=== PATIENT | female | born 1965 | race Two or more races ===

== ENCOUNTER 2020-07-15 10:39 | Emergency (ER) | payer OTHER ==
[~2020-07-15] VITALS: Ht 157.5 cm; Wt 94.0 kg
[2020-07-15 10:50] VITALS: BP 158/71
--- NOTE | 2020-07-15 11:14 | ED.ADGEN ---
Past Medical History Past Medical History: Arthritis Past Surgical History: Cholecystectomy Smoking Status: Never Smoker Alcohol Use: None Drug Use: None General Adult EDM: Chief Complaint: LOWER EXTREMITY EDEMA HPI: HPI: Patient is a 55 year old female, accompanied by her daughter who translates for her, that presents to the emergency room with complaints of left knee pain and swelling without any injury. Patient states that she traveled to [place] a week ago via train, she just came back yesterday. She denies any history of blood clots, hormone use, or smoking. Patient denies any recent injury or trauma. She denies any fever, cough, body aches, chest pain, shortness of breath, palpitations, nausea, vomiting, diarrhea, abdominal pain, fatigue, or rash. Patient denies any pain at rest however she states that she moves her left knee or bears weight on her left leg the pain is 10 out of 10 on the pain scale. She denies any medical history other than arthritis, her only surgery is a cholecystectomy, she denies any tobacco, drug, or alcohol use. Review of Systems: Review of Systems: Complete ROS is negative unless otherwise noted in HPI. Current Medications: Current Medications Medications (Trade) Dose Ordered Sig/Kvng Start Time Stop Time Status Last Admin Dose Admin Prednisone (Prednisone) 50 mg 1X ONCE 07/15/20 13:15 07/15/20 13:30 DC 07/15/20 14:45 50 MG Allergies: Allergies: Allergies Coded Allergies Type Severity Reaction Last Updated Verified No Known Drug Allergies 07/15/20 No Physical Exam: PE: See Above Constitutional: Well developed, well nourished, no acute distress, non-toxic appearance, obese. [] HENT: Normocephalic, atraumatic, bilateral external ears normal, nose normal. [] Eyes: PERRLA, EOMI, conjunctiva normal, no discharge. [] Neck: Normal range of motion, no stridor. [] Cardiovascular:Heart rate regular rhythm Lungs & Thorax: Respirations even and unlabored, no retractions, no respiratory distress Abdomen: soft, no tenderness Skin: Warm, dry, no erythema, no rash. [] Extremities: Left knee: 2+ edema and warmth to the lateral proximal knee, diffuse anterior tenderness to palpation, no obvious deformity, no crepitus, no cyanosis, ROM limited due to pain, no erythema, no bruising Neurologic: Alert and oriented X 3, normal sensory, no focal deficits noted. [] Psychologic: Affect normal, judgement normal, mood normal. [] Current Patient Data: Vital Signs: Vital Signs Date Time Temp Pulse Resp B/P (MAP) Pulse Ox O2 Delivery O2 Flow Rate FiO2 07/15/20 10:50 98.9 68 20 158/71 (100) 95 Room Air 98.9 EKG: EKG: [] Heart Score: C/O Chest Pain: No Risk Scores: Score 0 - 3: 2.5% MACE over next 6 weeks - Discharge Home Score 4 - 6: 20.3% MACE over next 6 weeks - Admit for Clinical Observation Score 7 - 10: 72.7% MACE over next 6 weeks - Early Invasive Strategies Radiology/Procedures: Radiology/Procedures: PROCEDURE: KNEE LEFT 3V XR KNEE _3 VIEWS_LT History: Reason: left knee pain and swelling no injury / Spl. Instructions: / History: Technique: 3 views left knee. Comparison: None. Findings: Normal alignment. No fracture. Moderate left knee DJD most prominent within the medial and patellofemoral compartments. Large knee joint effusion. Extensive varicose veins within the soft tissues. Impression: 1. No acute osseous abnormality. 2. Large knee joint effusion. 3. Extensive varicose veins.[] PROCEDURE: VENOUS LOWER EXTREMITY LEFT Left lower extremity venous duplex Doppler ultrasound HISTORY: Left leg swelling and pain recent traveling. FINDINGS: No DVT evident by grayscale sonography with compressibility, patent color Doppler blood flow and augmentation of blood flow the left common femoral vein, femoral vein, superficial femoral vein and popliteal vein. Left popliteal fossa Mendez's cyst measuring 6.5 x 1.1 x 4.0 cm. No DVT evident with patent color Doppler blood flow the posterior tibial and peroneal veins in the calf. IMPRESSION: Negative left leg for DVT. Mendez's cyst in the popliteal fossa. Electronically signed by: Justin Hurt MD (07/15/2020 12:26 PM) [id number] Course & Med Decision Making: Course & Med Decision Making Pertinent Labs and Imaging studies reviewed. (See chart for details) [] Dragon Disclaimer: Dragon Disclaimer: This electronic medical record was generated, in whole or in part, using a voice recognition dictation system. Departure Departure Impression: Primary Impression: Acute pain of left knee Additional Impression: Effusion of knee joint, left Disposition: HOME / SELF CARE / HOMELESS Condition: STABLE Referrals: YURI JACOBO MD Patient Instructions: Knee Effusion, [id number] Additional Instructions: Fill prescription(s) and use as directed, start taking medication tomorrow as the first dose was given in the ER.. Recommend application of ice, elevation, and rest of affected extremity. Follow-up with Dr. Jacobo this week, call in the morning to make an appointment, return to the ER if your symptoms worsen or fever develops.. Scripts Prednisone (PREDNISONE) 50 Mg Tablet 1 TAB PO DAILY for 5 Days, #5 TAB 0 Refills Prov: SATISH CASTRO APRN 07/15/20 Attending Signature Attending Signature I have participated in the care of this patient and I have reviewed and agree with all pertinent clinical information above including history, exam, and recommendations. Problem Qualifiers SATISH CASTRO APRN Jul 15, 2020 11:13 JOSHUA SHIPMAN DO Jul 15, 2020 18:30
--- NOTE | 2020-07-15 11:39 | RAD ---
XR KNEE _3 VIEWS_LT History: Reason: left knee pain and swelling no injury / Spl. Instructions: / History: Technique: 3 views left knee. Comparison: None. Findings: Normal alignment. No fracture. Moderate left knee DJD most prominent within the medial and patellofem oral compartments. Large knee joint effusion. Extensive varicose veins within the soft tissues. Impression: 1. No acute osseous abnormality. 2. Large knee joint effusion. 3. Extensive varicose veins. Electronically signed by: Mariano Mcnulty DO (07/15/2020 11:37 AM) [facility]
--- NOTE | 2020-07-15 12:28 | RAD ---
Left lower extremity venous duplex Doppler ultrasound HISTORY: Left leg swelling and pain recent traveling. FINDINGS: No DVT evident by grayscale sonography with compressibility, patent color Doppler blood james w and augmentation of blood flow the left common femoral vein, femoral vein, superficial femoral vein and popliteal vein. Left popliteal fossa Mendez's cyst measuring 6.5 x 1.1 x 4.0 cm. No DVT evident w ith patent color Doppler blood flow the posterior tibial and peroneal veins in the calf. IMPRESSION: Negative left leg for DVT. Mendez's cyst in the popliteal fossa. Electronically signed by: Justin Hurt MD (07/15/2020 12:26 PM) [id number]
[2020-07-15] MEDS ORDERED: predniSONE 10 MG TABLET PO ONE (13:15)
[2020-07-15] MEDS ORDERED: PRED50TA PO (13:21)
== END 2020-07-15 14:51 | disposition home or self-care (01) ==
LOC: ER 10:39
DX: M25.462 Effusion, left knee (principal); M25.562 Pain in left knee; R60.0 Localized edema; M19.90 Unspecified osteoarthritis, unspecified site; Z90.49 Acquired absence of other specified parts of digestive tract
CPT/HCPCS: 73562; 93971; 99284; J7512

== ENCOUNTER → 2021-01-04 | Outpatient (CLI) | payer OTHER ==
[~2021-01-04] MED LIST: PRED50TA PO
--- NOTE | 2021-01-09 15:10 | KCIC ---
Bilateral digital screening mammograms: Reason for examination: Routine screening. New baseline. Interpretation was made with the benefit of CAD. The skin and nipples show no abnormalities. No abnormal axillary lymph nodes are seen. The breast par enchyma is heterogeneously dense. (Breast density: Category C) There is a small circumscribed nodule at the 2:30 C position left breast. There are no other dominant masses, suspicious calcifications or architectural distortion. A few benign calcifications are seen. Impression: No evidence of malignancy. Recommend routine screening. Your patient's mammogram demonstrates that she has dense breast tissue (breast density category C or D), which could hide abnormalities, and if she has other risk factors for breast cancer that have bee n identified, she might benefit from supplemental screening tests that may be suggested by you as her ordering physician. Dense breast tissue, in and of itself, is a relatively common condition. Therefo re, this information is not provided to cause undue concern, but rather to raise your awareness and t o promote discussion with your patient regarding the presence of other risk factors, in addition to d ense breast tissue. Your patient's mammography results will be sent to her. BI-RADS Category 2: Benign. "Our facility is accredited by the [employer] Mammography Program." This patient's information has been entered into a reminder system for the patient to be notified wit h the results of her examination and a target date for the next mammogram. Electronically signed by: Connie Ramey MD (01/09/2021 3:07 PM) [id number]
== END ==
LOC: KCIC MAMMO 14:39
PROVIDERS: ATTEND Obstetrics & Gynecology
DX: Z12.31 Encounter for screening mammogram for malignant neoplasm of breast (principal)
CPT/HCPCS: 77067

== ENCOUNTER → 2021-01-21 | Outpatient (CLI) | payer OTHER ==
--- NOTE | 2021-01-21 11:35 | RAD ---
EXAM: Thyroid sonogram. HISTORY: Thyroid nodule. TECHNIQUE: Sonographic imaging of the thyroid was performed. COMPARISON: None. FINDINGS: The right thyroid lobe measures 6.0 x 2.0 x 2.3 cm. The left thyroid lobe measures 6.0 x 2. 0 x 2.0 cm. The thyroid isthmus measures 3.4 mm. The thyroid parenchyma is diffusely heterogeneous an d contains multiple small heterogeneous hypoechoic nodules. The largest nodule measures 9 x 8 x 4 mm within the right aspect of the thyroid isthmus. The second largest nodule measures 9 x 5 x 4 mm withi n the lateral left mid thyroid lobe. The third largest nodule measures 7 x 6 x 4 mm within the inferi or left thyroid lobe. IMPRESSION: 1. Heterogeneous enlarged thyroid. 2. Multiple subcentimeter thyroid nodules, largest of which are described above. TI-RADS Category 4. Sonographic follow-up is recommended for category 4 nodules equal to or greater than 10 mm in maximum dimension. Electronically signed by: Christina You MD (01/21/2021 11:32 AM) [id number]
== END ==
LOC: US 10:41
PROVIDERS: ATTEND Family Medicine
DX: E04.2 Nontoxic multinodular goiter (principal)
CPT/HCPCS: 76536